=== PATIENT | male | born 1995 | race American Indian/Alaskan Native ===

== ENCOUNTER 2017-03-30 01:43 | Emergency (ER) | payer OTHER ==
[2017-03-30 02:00] VITALS: BP 104/71
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
[2017-03-30] MEDS ORDERED: MOTRIN PO ONE (06:11)
== END 2017-03-30 06:20 | disposition home or self-care (01) ==
LOC: ED 01:43
DX: M54.9 Dorsalgia, unspecified (principal); V89.2XXA Person injured in unspecified motor-vehicle accident, traffic, initial encounter; Y93.89 Activity, other specified; Y92.89 Other specified places as the place of occurrence of the external cause; Y99.8 Other external cause status
CPT/HCPCS: 99282